=== PATIENT | male | born 1950 | race Caucasian/White ===

== ENCOUNTER 2016-11-19 00:08 | Day surgery (SDC) | payer MEDICARE ==
[2016-11-19] VITALS (13 sets, daily range): BP systolic 115–138; BP diastolic 65–79; PULSE 61–70; RESP 10–22; O2SAT 95–100
[~2016-11-19] VITALS: Ht 180.3 cm; Wt 93.0 kg
[~2016-11-19 00:08] MED LIST: ASPI325T32 PO; CLON0.2T PO; CYCL15CA18 PO; CYCL5TAB PO; DEXL60CA5 PO; LISI2.5T PO; LORA1TAB PO; METO50TA3 PO; RIVA20TA PO; TAPE100T5 PO; VITA400C64 PO; ZOLP12.547 PO
[2016-11-19] MEDS ORDERED: Vancomycin Inj 1,000 MG in IV Premix 1 EACH IV ONE (06:00)
[2016-11-19] MEDS ORDERED: 0.9% Sodium Chloride 1,000 ML IV SCH (06:45)
[2016-11-19 07:38] LABS: BASOPHILS % (AUTO) 0.5 % (0-3); MONOCYTES % (AUTO) 9.8 % (4-12); Mean Corpuscular Hemoglobin 31.7 pg (27.0-35.0); NEUTROPHILS % (AUTO) 44.2 % (40-74); Platelet Count 160 bil/L (150-400)
[2016-11-19 07:41] LABS: INR 0.96 ratio
--- NOTE | 2016-11-19 07:44 | NUR ---
ADMISSION NOTE MALE PT ADMITTED FOR ABLATION. DISCUSSED PLAN OF CARE WITH PT AND . SEE ADMIT AND FLOW SHEET
[2016-11-19] MEDS ORDERED: LISI-571 PO (08:01)
[2016-11-19] MEDS ORDERED: fentaNYL-PF 50 mCg/mL 2 mL Inj ONE ×2 (08:48→09:59)
[2016-11-19] MEDS ORDERED: Heparin 5,000 Units/500 mL NS Premix IV ONE (08:51)
[2016-11-19] MEDS ORDERED: Heparin 1,000 Unit/mL 10 mL Inj ONE (08:54)
[2016-11-19] MEDS ORDERED: Ondansetron 2 mg/mL 2 mL Inj IVPUSH PRN (10:35)
[2016-11-19] MEDS ORDERED: HYDROcodone-APAP 5-325 mg Tablet PO PRN (10:35)
--- NOTE | 2016-11-19 10:55 | NUR ---
POST PROCEDURE NOTE RETURNED FROM [employer]. SEE FLOW SHEET
--- NOTE | 2016-11-19 11:23 | PROCED ---
[address] [id number] PROCEDURE NOTE PATIENT: TRISTAN GIVENS : 1950 MR#: [id number] ADMIT: 11/19/2016 JOB ID: [id number] DATE OF SERVICE: 11/19/2016 PREOPERATIVE DIAGNOSIS(ES): Atrial flutter. POSTOPERATIVE DIAGNOSIS(ES): Atrial flutter. PROCEDURES PERFORMED: 1. Comprehensive electrophysiology study. 2. Three-dimensional electroanatomic mapping using the CARTO 3 system. 3. Atrial flutter ablation (cavotricuspid isthmus ablation; atrial ablation). 4. Fluoroscopy. SURGEON: Pradip Thornton MD, Electrophysiology. LOAN MANAGER: 1. Akhil Monroy. 2. Adrienne Pablo. ANESTHESIA: Bolus dosing of Versed and fentanyl were utilized for an appropriate level of sedation. INDICATION: The patient is a pleasant, 66-year-old man, with highly symptomatic recurrent atrial flutter. After discussion of risks and benefits of catheter based mapping and ablation, he opted to proceed. PROCEDURAL DESCRIPTION: Following informed consent, the patient was taken to the EP laboratory in a fasting nonsedated state, where he was prepped and draped in the usual sterile fashion. The right inguinal region was infiltrated with 1% lidocaine. Then, using modified Seldinger technique, one 8 and two 7-Turkish sheaths were inserted in the right femoral vein. Under fluoroscopic guidance, a deflectable decapolar catheter was advanced to the coronary sinus, with the most proximal bipolar at the os of the sinus. A 20 pole Livewire catheter was advanced and used to encircle the tricuspid anulus. A J curve Smart Touch irrigated ablation catheter was brought to the field and used to create a three-dimensional electroanatomic map of the right atrium, tricuspid anulus and cavotricuspid isthmus. The patient was in sinus rhythm at the onset of the case. Pacing was undertaken from the coronary sinus os while monitoring the atrial activation pattern on the Livewire catheter. A linear series of ablation was performed from the ventricular to the IVC aspect of the cavotricuspid isthmus while monitoring the atrial activation pattern. Ultimately, medial to lateral block was achieved. Lateral to medial was confirmed. A 20 minute waiting period was undertaken, during which bidirectional isthmus block was confirmed. Specifically, the trans isthmus time was 157 msec in the medial to lateral direction, and 168 msec in the lateral to medial direction. During the course of this study, we did complete a comprehensive electrophysiology study with right atrial pacing and recording, right ventricular pacing and recording, His bundle recording, and left atrial pacing recording via the coronary sinus catheter. All catheters and sheaths were removed. Manual pressure was held for hemostasis. [facility] monitoring, bedrest, and discharge. COMPLICATIONS: None. ESTIMATED BLOOD LOSS: Negligible. FINDINGS: 1. Baseline rhythm is sinus with an RR interval of 911 msec, FL 196 msec, QRS 69 msec, QT 387 msec, RR 911 msec. 2. Intracardiac intervals: AH interval 101 msec, HV 52 msec. Post ablation, 84 msec and 56 msec, respectively. 3. Retrograde conduction atrial activation is concentric. VA Wenckebach is seen at 560 msec. 4. Cavotricuspid isthmus ablation as described above. The trans isthmus time with bidirectional block is 157 msec medial to lateral direction and 168 msec lateral to medial direction. IMPRESSION: Successful cavotricuspid isthmus ablation for typical atrial flutter. PLAN: 1. Bed rest x4 hours. 2. Continue beta blockade and anticoagulation. 3. Initiate flecainide 50 mg twice daily given some breakthrough episodes of atrial fibrillation. 4. EKG in one week. 5. Follow up with me in the clinic in four weeks. ATTENDING STATEMENT: Pradip Thornton MD, electrophysiology attending, was present for and performed all aspects of this procedure.
--- NOTE | 2016-11-19 16:00 | NUR ---
DISCHARGE NOTE UP IN ROOM, TOLERATED WELL, INSTRUCTIONS GIVEN. HOME WITH
== END 2016-11-19 23:59 | disposition home or self-care (01) ==
LOC: SOUO 00:08 → EDSTATUS 13:36 → SOUO 23:59
PROVIDERS: ATTEND Internal Medicine Cardiovascular Disease
DX: I48.3 Typical atrial flutter (principal); I44.7 Left bundle-branch block, unspecified; Z79.01 Long term (current) use of anticoagulants; N40.0 Benign prostatic hyperplasia without lower urinary tract symptoms
CPT/HCPCS: 36415; 80048; 85025; 85610; 93005; 93613; 93621; 93653; 99152; 99153; C1730; C1731; C1732; C1893; J0131; J1644; J2250; J3010